=== PATIENT | male | born 1995 | race Caucasian/White ===

== ENCOUNTER 2018-04-02 21:23 | Emergency (ER) | payer OTHER, SELFPAY ==
[2018-04-02 21:24] VITALS: BP 124/78; PULSE 62; RESP 22; TEMP 36.9; O2SAT 100; BMI 33.8
--- NOTE | 2018-04-02 21:27 | ED.RN ---
NO OLD EKGS IN MUSE
--- NOTE | 2018-04-02 21:39 | ED.DCSUM_ITS ---
- ER Visit Summary Date of Service: 04/02/18 Chief Complaint: Chest pain History of Present Illness: The patient is a 22 M presents to the emergency department chest pain. Patient has a history of developmental delay and anxiety. He currently is in a assisted. He began to have some chest tightness today and felt like he was short of breath. He states he began to get more panicked. He began have numbness of his hands and feet and around his mouth. They did do some deep breathing exercises and he was able to relax, but he continued to have the pain. He has no history of coronary vascular disease. He does not smoke. He denies cough. He has no leg swelling. He denies any history of pulmonary embolus. He denies fevers or chills. Physical Examination: Vital signs reviewed General: Well-nourished, well-developed Head: Normocephalic, atraumatic Eyes: Pupils equal and reactive, extraocular muscles intact Neck, supple, no lymphadenopathy Heart: Regular rate and rhythm Respiratory: No distress, clear bilaterally Abdomen: Soft, nontender, nondistended, no peritoneal signs Back: Nontender Extremities: Nontender, no edema, no cords Skin: Normal color no rash Neuro: Alert and oriented, no focal or lateralizing deficits Test Results: [] Emergency Department Course and Treatment: The patient's symptoms do seem entirely anxiety driven. He has no hypoxia. He has no tachypnea. He is PE RC negative. His EKG was obtained showed no acute ischemia or other dangerous process. His chest x-ray is also unremarkable. Patient was given ibuprofen and Ativan and observed. He had total resolution of his symptoms. At this time, I do feel it is safe for outpatient therapy. He will be discharged home. Treatment Plan: [] Disposition: Discharge Impression: 1. Chest pain This note was generated with [employer] dictation software. It may contain incorrect words, spelling, and punctuation that were not noted in review of the chart prior to signing ED Disposition - Plan for ED Patient: Chief Complaint: Chest Pain Instructions: ED Chest Pain Atypical Unkn Cause Referrals: Gregory Nunez PA [Primary Care Provider] -
[2018-04-02] MEDS: Ibuprofen 600 MG Tablet PO (21:41)
[2018-04-02] MEDS: LORazepam 1 MG Tablet PO (21:41)
[2018-04-02 21:43] VITALS: BP 127/67; PULSE 73; RESP 20; O2SAT 96
--- NOTE | 2018-04-02 22:06 | RAD_ITS ---
STUDY: X-RAY CHEST REASON FOR EXAM: Male, 22 years old. Chest pain TECHNIQUE: PA and lateral COMPARISON: None. FINDINGS: There is mild prominence of the interstitial markings in the lower lobes.. There is no demonstrated pleural abnormality. Normal size heart. Normal mediastinum and isidra. Normal visualized pulmonary arteries. Normal visualized aortic arch and descending thoracic aorta. Normal visualized thoracic spine. Normal visualized ribs, clavicles, and shoulders. There is no demonstrated abnormality of the visualized soft tissue structures of the upper abdomen. RAD/Chest PA and Lateral IMPRESSION: Mild interstitial prominence in the lower lobes. Electronically Signed: Ramy Abbott MD at 22:52 EST , Service support ,
--- NOTE | 2018-04-02 22:16 | EKG12_ITS ---
Test Reason : CP Blood Pressure : / mmHG Vent. Rate : 061 BPM Atrial Rate : 061 BPM P-R Int : 172 ms QRS Dur : 090 ms QT Int : 360 ms P-R-T Axes : 028 036 022 degrees QTc Int : 362 ms Normal sinus rhythm Normal ECG Confirmed by LILLIE ENGLISH, DANIE ([id number]), field map editor NAZ MOORE ([id number]) on 04/04/2018 4:29:30 PM Referred By: MOHAN Confirmed By:DANIE MOREIRA MD
[2018-04-02 22:36] VITALS: BP 112/58; PULSE 67; RESP 16; O2SAT 95
--- OUTSIDE RECORDS SUMMARY | 2018-05-15 17:32 | XMS RPT_ITS ---
:1995 Author Organization [place] Care Team Providers Name Role Phone DALILA AGOSTO) Attending Unavailable DALILA AGOSTO) Attending Unavailable Shon Skaggs Attending Unavailable Gregory Nunez Primary Care Unavailable PROBLEMS PROBLEMS No Problem Records FoundPROCEDURES PROCEDURES No Procedure Records FoundRESULTS RESULTS CNOV Observed: 04/09/2018 Status: COMPLETED Source: [place] 1:40 PM [facility] REPOSITORY Office Visit (FAMPWS) MARLO LINDO ([id number]) 1995 M Date Time Provider Department 04/09/18 1:40 PM DALILA AGOSTO) FAMPWS During your visit today, we recorded the following information about you: Pulse Respiration Blood pressure Weight 74/minute 14/minute 124/76 112.5 kg Dalila Agosto APRN.CNP 04/09/2018 2:38 PM Signed HPI/CC: Marlo Lindo is a 22 year old male who presents to the office today for ER follow-up. He was to [facility] following c/o chest pain. Refers that he had an episode of chest pain. Refers that is started when he was in bed getting ready to go to sleep. Described in the upper center and left of the chest. [place] like needles poking out. Hurt to take a deep breath. Unsure if would hurt to cough/sneeze. Made SOB and lightheaded. Had palpitations -- but the chest pain came first. Admits that he was anxious after developing the chest pain. Refers that his limbs were numb and tingling. Refers that he had chest pain in the past, but not this bad. Refers that he doesn't have hx of GERD. Reports needs script for melatonin and nasacort to the pharmacy. Testing completed at the facility: Chest xray, EKG Labwork completed at the facility: N/A Other specialist and follow up care: N/A Pain was relieved after NSAID and ativan. HISTORIES: PAST MEDICAL HISTORY Diagnosis Date - ADHD (attention deficit hyperactivity disorder) - Bipolar 2 disorder (HCC) No past surgical history on file. FAMILY HISTORY Problem Relation Age of Onset - Emphysema Father - Heart Father Social History Marital status: Single Spouse name: Years of education: Number of children: Social History Main Topics Smoking status: Current Every Day Smoker Packs/day: 1.00 Years: 0.00 Smokeless tobacco: Never Used Alcohol use: No Drug use: No Sexual activity: Yes Comment: once Current Outpatient Prescriptions on File Prior to Visit: benzonatate (TESSALON PERLE) 100 mg capsule Take 2 capsules by mouth three times daily as needed. nqxttgbbsuSAVPL-impysm-dlxusefxr (BMX 1:1:1) 1:1:1 liqd Mix in equal amounts - 1 T every 2hrs as needed for mouth pain, Swish/swallow or expectorate. (8oz) COMPOUNDED PRESCRIPTION BP Monitor. Dx: I10 - HTN goal to be determined. Blood Pressure Cuff - Home Use BLOOD PRESSURE CUFF FOR HOME USE. DX: LABILE BLOOD PRESSUREElectronic. Adult/large adult cuff. lurasidone (LATUDA) 40 mg tablet Take by mouth. BENZTROPINE MESYLATE (BENZTROPINE ORAL) Take by mouth. sertraline (ZOLOFT) 50 mg tablet Take 75 mg by mouth once daily. guanFACINE (TENEX) 2 mg tablet Take 2 mg by mouth twice daily. lamoTRIgine (LAMICTAL) 150 mg tablet Take 150 mg by mouth twice daily. cetirizine (ZYRTEC) 10 mg tablet Take 10 mg by mouth once daily. MELATONIN ORAL Take by mouth once daily. hydrOXYzine HCl (ATARAX) 25 mg tablet Take 25 mg by mouth once daily as needed for Anxiety. No current facility-administered medications on file prior to visit. ALLERGIES No Known Allergies PHYSICAL EXAMINATION: BP 124/76 (BP Site: Left Arm, BP Position: Sitting, BP Cuff Size: Large Adult) Pulse 74 Resp 14 Wt 112.5 kg (248 lb) BMI 35.58 kg/m? General appearance: Well appearing, alert, in no acute distress, well-hydrated, well nourished. Skin: Skin color, texture, turgor normal, no suspicious rashes or lesions Head: Normocephalic, no masses, lesions, tenderness or abnormalities Eyes: Anicteric sclera. Extraocular movements are intact. Neck: Supple, no adenopathy; thyroid symmetric, normal size, no bruits Lungs: lungs clear to auscultation. No wheezing, rhonchi, rales Lungs clear to auscultation. No wheezing, rhonchi, rales Heart: RRR without murmur, gallop, or rubs. No ectopy Abdomen: Abdomen soft, non-tender. Bowel sounds normal. No masses, organomegaly Extremities: No deformities, edema, skin discoloration, clubbing or cyanosis. Good capillary refill. Neuro: Gait normal. ASSESSMENT/PLAN: 1. Other chest pain - ICD9: 786.59, ICD10: R07.89 (primary diagnosis) Atypical chest pain, symptoms are not consistent with cardiac ischemia due to nonexertional nature of symptom and localization of the pain possible etiology include musculoskeletal Normal work up in the ER. Pain was relieved with after nsaid and ativan. No further episodes since that time. 2. Chronic insomnia - ICD9: 780.52, ICD10: F51.04 Requests script -- has been taking OTC - MELATONIN 10 MG TABLET 3. Allergic rhinitis, unspecified seasonality, unspecified trigger - ICD9: 477.9, ICD10: J30.9 Needs script. - TRIAMCINOLONE ACETONIDE 55 MCG NASAL SPRAY AEROSOL Discussed treatment plan and patient voices understanding. Patient's questions answered appropriately. Medications and potential side effects were discussed and patient voices understanding. Return to the office as scheduled or as needed for worsening/no improvement. Dalila Agosto APRN.JOHNNIE Agosto APRN.CNP 04/09/2018 1:56 PM Signed 1. Continue the same medications. 2. Let us know if any further episodes of chest pain. 3. Call/return as needed. 4. Recheck with PCP in the next few months. Referring Provider: [facility] [[id number]] Allergies As of Date: 04/09/2018 (No Known Allergies) Date Reviewed: 04/09/2018 Reviewed by: Marietta Campbell Grain Packer - Fully Assessed Reason for Visit: ED Follow-up [821] Cmt: chest pain Primary Visit Diagnosis:Other chest pain [R07.89] Other Visit Diagnoses:Chronic insomnia [F51.04] Allergic rhinitis, unspecified seasonality, unspecified trigger [J30.9] Order(s):melatonin 10 mg tabTake 1 tablet by mouth daily at bedtime.Disp: 30 tabletRfl: 2 triamcinolone acetonide (NASACORT) 55 mcg nasal inhalerUse 2 Sprays in the nose once daily.Disp: 1 InhalerRfl: 2 Prescriptions as of 04/09/2018 Sig: BENZONATATE 100 MG CAPSULE Take 2 capsules by mouth thre* COMPOUNDED PRESCRIPTION BP Monitor. Dx: I10 - HTN g* COMPOUNDED PRESCRIPTION BLOOD PRESSURE CUFF FOR HOME * LURASIDONE 40 MG TABLET Take by mouth. BENZTROPINE ORAL Take by mouth. SERTRALINE 50 MG TABLET Take 75 mg by mouth once jameel* GUANFACINE 2 MG TABLET Take 2 mg by mouth twice jameel* LAMOTRIGINE 150 MG TABLET Take 150 mg by mouth twice da* CETIRIZINE 10 MG TABLET Take 10 mg by mouth once jameel* HYDROXYZINE HCL 25 MG TABLET Take 25 mg by mouth once jameel* MELATONIN 10 MG TABLET Take 1 tablet by mouth daily * TRIAMCINOLONE ACETONIDE 55 MC* Use 2 Sprays in the nose once* Medication notes this encounter MELATONIN ORAL >> Dalila Agosto APRN.CNP 04/09/2018 1:41 PM refill Problem List As Of Date 04/09/2018 Noted Resolved Bipolar 2 disorder (HCC) [F31.81] ADHD (attention deficit hyperactivity disorder)* Other instructions from your clinician: 1. Continue the same medications. 2. Let us know if any further episodes of chest pain. 3. Call/return as needed. 4. Recheck with PCP in the next few months. Prescriptions ordered this encounter Disp Refills Start End MELATONIN 10 MG TABLET 30 t* 2 04/09/2018 Route: ORAL Sig: Take 1 tablet by mouth daily at bedtime. TRIAMCINOLONE ACETONIDE 55 MCG NASAL* 1 In* 2 04/09/2018 Route: NASAL Sig: Use 2 Sprays in the nose once daily. Medications Discontinued During This Encounter MELATONIN ORAL 04/09/2018 Class: Historical Med Route: ORAL Sig: Take by mouth once daily. Disc: Other feepbcbepgZLBXZ-cxvtmj-ftlqdiols (BM* 240 * 0 02/23/2018 04/09/2018 Sig: Mix in equal amounts - 1 T every 2hrs as needed for mouth pain, Swish/swallow or expectorate. (8oz) Disc: Course of therapy completed Encounter Status:Closed by DALILA AGOSTO CNP on 04/09/18 PROGRESS Observed: 04/09/2018 Status: COMPLETED Source: [place] 1:35 PM [facility] RE[facility]IT[facility] ID: [id number] Author: Dalila (Johnnie) Triny Service: (none) Author Type: Nurse Practitioner Type: Progress Notes Filed: 04/09/2018 2:38 PM Note Text: HPI/CC: Marlo Lindo is a 22 year old male who presents to the office today for ER follow-up. He was to [facility] following c/o chest pain. Refers that he had an episode of chest pain. Refers that is started when he was in bed getting ready to go to sleep. Described in the upper center and left of the chest. [place] like needles poking out. Hurt to take a deep breath. Unsure if would hurt to cough/sneeze. Made SOB and lightheaded. Had palpitations -- but the chest pain came first. Admits that he was anxious after developing the chest pain. Refers that his limbs were numb and tingling. Refers that he had chest pain in the past, but not this bad. Refers that he doesn't have hx of GERD. Reports needs script for melatonin and nasacort to the pharmacy. Testing completed at the facility: Chest xray, EKG Labwork completed at the facility: N/A Other specialist and follow up care: N/A Pain was relieved after NSAID and ativan. HISTORIES: PAST MEDICAL HISTORY Diagnosis Date - ADHD (attention deficit hyperactivity disorder) - Bipolar 2 disorder (HCC) No past surgical history on file. FAMILY HISTORY Problem Relation Age of Onset - Emphysema Father - Heart Father Social History Marital status: Single Spouse name: Years of education: Number of children: Social History Main Topics Smoking status: Current Every Day Smoker Packs/day: 1.00 Years: 0.00 Smokeless tobacco: Never Used Alcohol use: No Drug use: No Sexual activity: Yes Comment: once Current Outpatient Prescriptions on File Prior to Visit: benzonatate (TESSALON PERLE) 100 mg capsule Take 2 capsules by mouth three times daily as needed. wfcnpaxmokPNIXK-vqkffu-ngvgpuayv (BMX 1:1:1) 1:1:1 liqd Mix in equal amounts - 1 T every 2hrs as needed for mouth pain, Swish/swallow or expectorate. (8oz) COMPOUNDED PRESCRIPTION BP Monitor. Dx: I10 - HTN goal to be determined. Blood Pressure Cuff - Home Use BLOOD PRESSURE CUFF FOR HOME USE. DX: LABILE BLOOD PRESSUREElectronic. Adult/large adult cuff. lurasidone (LATUDA) 40 mg tablet Take by mouth. BENZTROPINE MESYLATE (BENZTROPINE ORAL) Take by mouth. sertraline (ZOLOFT) 50 mg tablet Take 75 mg by mouth once daily. guanFACINE (TENEX) 2 mg tablet Take 2 mg by mouth twice daily. lamoTRIgine (LAMICTAL) 150 mg tablet Take 150 mg by mouth twice daily. cetirizine (ZYRTEC) 10 mg tablet Take 10 mg by mouth once daily. MELATONIN ORAL Take by mouth once daily. hydrOXYzine HCl (ATARAX) 25 mg tablet Take 25 mg by mouth once daily as needed for Anxiety. No current facility-administered medications on file prior to visit. ALLERGIES No Known Allergies PHYSICAL EXAMINATION: BP 124/76 (BP Site: Left Arm, BP Position: Sitting, BP Cuff Size: Large Adult) Pulse 74 Resp 14 Wt 112.5 kg (248 lb) BMI 35.58 kg/m? General appearance: Well appearing, alert, in no acute distress, well-hydrated, well nourished. Skin: Skin color, texture, turgor normal, no suspicious rashes or lesions Head: Normocephalic, no masses, lesions, tenderness or abnormalities Eyes: Anicteric sclera. Extraocular movements are intact. Neck: Supple, no adenopathy; thyroid symmetric, normal size, no bruits Lungs: lungs clear to auscultation. No wheezing, rhonchi, rales Lungs clear to auscultation. No wheezing, rhonchi, rales Heart: RRR without murmur, gallop, or rubs. No ectopy Abdomen: Abdomen soft, non-tender. Bowel sounds normal. No masses, organomegaly Extremities: No deformities, edema, skin discoloration, clubbing or cyanosis. Good capillary refill. Neuro: Gait normal. ASSESSMENT/PLAN: 1. Other chest pain - ICD9: 786.59, ICD10: R07.89 (primary diagnosis) Atypical chest pain, symptoms are not consistent with cardiac ischemia due to nonexertional nature of symptom and localization of the pain possible etiology include musculoskeletal Normal work up in the ER. Pain was relieved with after nsaid and ativan. No further episodes since that time. 2. Chronic insomnia - ICD9: 780.52, ICD10: F51.04 Requests script -- has been taking OTC - MELATONIN 10 MG TABLET 3. Allergic rhinitis, unspecified seasonality, unspecified trigger - ICD9: 477.9, ICD10: J30.9 Needs script. - TRIAMCINOLONE ACETONIDE 55 MCG NASAL SPRAY AEROSOL Discussed treatment plan and patient voices understanding. Patient's questions answered appropriately. Medications and potential side effects were discussed and patient voices understanding. Return to the office as scheduled or as needed for worsening/no improvement. Dalila Agosto APRN.[facility] 12 LEAD ELECTROCARDIOGRAM Observed: 04/06/2018 Status: F Source: [place] 9:28 AM [facility] Cardiovascular Services [address] [place] [id number] 12 Lead EKG 04/02/180 MR#: [id number] Acct: [id number] Name: MARLO LINDO Rep #: [id number] : 1995 22 From: Enoc Moreira MD Attending Dr: Status: DEP ER Ordering Dr: Shon Skaggs MD Date: 04/02/18 Location: ED Sex: M C Admitted: Test Reason : CP Blood Pressure : / mmHG Vent. Rate : 061 BPM Atrial Rate : 061 BPM P-R Int : 172 ms QRS Dur : 090 ms QT Int : 360 ms P-R-T Axes : 028 036 022 degrees QTc Int : 362 ms Normal sinus rhythm Normal ECG Confirmed by LILLIE ENGLISH, ENOC ([id number]), newspaper managing editor NAZ MOORE ([id number]) on 04/04/2018 4:29:30 PM Referred By: MOHAN Confirmed By:ENOC MOREIRA MD 04/04/18 1629 Date Enoc Moreira MD CC: Gregory Nunez; Shon Skaggs MD Signed EMERGENCY DEPARTMENT Observed: 04/02/2018 Status: F Source: [place] SUMMARY 11:12 PM [facility] [place] Medical Records Department [address] [place] [address] Emergency Department Summary 04/02/18 2138 MR#: [id number] Acct: [id number] Name: MARLO LINDO Rep #: [id number] : 1995 22 From: Shon Skaggs MD PCP: Gregory Nunez Status: REG ER - ER Visit Summary Date of Service: 04/02/18 Chief Complaint: Chest pain History of Present Illness: The patient is a 22 M presents to the emergency department chest pain. Patient has a history of developmental delay and anxiety. He currently is in a alf. He began to have some chest tightness today and felt like he was short of breath. He states he began to get more panicked. He began have numbness of his hands and feet and around his mouth. They did do some deep breathing exercises and he was able to relax, but he continued to have the pain. He has no history of coronary vascular disease. He does not smoke. He denies cough. He has no leg swelling. He denies any history of pulmonary embolus. He denies fevers or chills. Physical Examination: Vital signs reviewed General: Well-nourished, well-developed Head: Normocephalic, atraumatic Eyes: Pupils equal and reactive, extraocular muscles intact Neck, supple, no lymphadenopathy Heart: Regular rate and rhythm Respiratory: No distress, clear bilaterally Abdomen: Soft, nontender, nondistended, no peritoneal signs Back: Nontender Extremities: Nontender, no edema, no cords Skin: Normal color no rash Neuro: Alert and oriented, no focal or lateralizing deficits Test Results: [] Emergency Department Course and Treatment: The patient's symptoms do seem entirely anxiety driven. He has no hypoxia. He has no tachypnea. He is PE RC negative. His EKG was obtained showed no acute ischemia or other dangerous process. His chest x-ray is also unremarkable. Patient was given ibuprofen and Ativan and observed. He had total resolution of his symptoms. At this time, I do feel it is safe for outpatient therapy. He will be discharged home. Treatment Plan: [] Disposition: Discharge Impression: 1. Chest pain This note was generated with [employer] dictation software. It may contain incorrect words, spelling, and punctuation that were not noted in review of the chart prior to signing ED Disposition - Plan for ED Patient: Chief Complaint: Chest Pain Instructions: ED Chest Pain Atypical Unkn Cause Referrals: Gregory Nunez PA [Primary Care Provider] - What to do if you have Problems For any increased pain, shortness of breath, bleeding, nausea or vomiting, chest pain, or any unexpected problems, contact your Primary Care Provider. Call [facility] ([phone]) or report to the closest Emergency Room. Call 911 if necessary. 04/02/18 2312 <Electronically signed by Shon Skaggs MD> Date Shon Skaggs MD Cosigner Signature (If Indicated): Date CC: Gregory Nunez CHEST PA AND LATERAL Observed: 04/02/2018 Status: F Source: [place] 9:33 PM [facility] [place] Imaging Services [address] [place] [address] Chest PA and Lateral MR#: [id number] Acct: [id number] Name: MARLO LINDO Rep #: [id number] : 1995 M 22 From: Ramy Abbott MD PCP: Gregory Nunez Status: REG ER Study: Chest PA and Lateral Date of Exam: 04/02/18 Exam# [id number] Ordering Dr: Shon Skaggs MD STUDY: X-RAY CHEST REASON FOR EXAM: Male, 22 years old. Chest pain TECHNIQUE: PA and lateral COMPARISON: None. FINDINGS: There is mild prominence of the interstitial markings in the lower lobes.. There is no demonstrated pleural abnormality. Normal size heart. Normal mediastinum and isidra. Normal visualized pulmonary arteries. Normal visualized aortic arch and descending thoracic aorta. Normal visualized thoracic spine. Normal visualized ribs, clavicles, and shoulders. There is no demonstrated abnormality of the visualized soft tissue structures of the upper abdomen. RAD/Chest PA and Lateral IMPRESSION: Mild interstitial prominence in the lower lobes. Electronically Signed: Ramy Abbott MD at 22:52 EST , Service support , CC: Gregory Nunez; Shon Skaggs MD Inbound Ingredient Logistics Specialist: Signed PROGRESS Observed: 03/16/2018 Status: COMPLETED Source: [place] 2:55 PM [facility] HAND REPOSITORY [facility] ID: [id number] Author: Althea Vergara LPN Service: (none) Author Type: (none) Type: Progress Notes Filed: 03/16/2018 2:56 PM Note Text: 22 year old male here for INACTIVATED INFLUENZA VACCINE. 8899-8643 Season Patient is identified by name and date of : Yes [] CONTRAINDICATIONS color enhanced section Age less than 6 months? No Allergy to eggs, chicken, chicken feathers, or chicken dander? No Allergy to thimerosal (a preservative) or formaldehyde, gelatin? No History of severe reaction to any vaccine component or a previous dose of influenza vaccination? No History of Guillain-Charleston Syndrome within 6 weeks after a previous influenza vaccine? No Patient is not moderately or severely ill? No Current temperature greater or equal to 100.4F? No History of Bone Marrow Transplant prior 6 months or solid organ transplant in the past 3 months ? No History of fainting after a prior injection or medical procedure? No- ? If patient has fainted in the past, the CDC recommends sitting or lying down for 15 minutes after the vaccination. [] VERIFICATION color enhanced section Was the answer Yes for any of the above contraindications? No contraindications present. Acceptable to proceed with vaccine. Patient/guardian agrees the above answers are true to the best of their knowledge? Yes Flu vaccine information sheet given? Yes See immunization activity in [facility] for details of immunizations adminstered today. Patient age: [age] year old For The 3652-8117 Flu Season 6-35 months old: Fluzone 0.25 ml - IM (Preservative Free) 3 years of age: Fluzone 0.5 ml - IM (Preservative Free) 3 years and older: Fluzone 0.5 ml- IM-(with Preservatives) 65+ years old: 2-49 years old Fluzone High-Dose 0.5 ml - IM (Preservative Free) FLUMIST- intranasal REMEMBER: If patient is less than 9 years of age and this is the first vaccine of Influenza to be received in any flu season, they should receive a second dose in one months time. CNNURSE Observed: 03/16/2018 Status: COMPLETED Source: [place] 2:50 PM [facility] REPOSITORY Nurse Visit (FAMPWS) MARLO LINDO ([id number]) 1995 M Date Time Provider Department 03/16/18 2:50 PM [place] NURSE FAMPWS During your visit today, we recorded the following information about you: Althea Vergara MIGDALIA 03/16/2018 2:56 PM Signed 22 year old male here for INACTIVATED INFLUENZA VACCINE. 2678-1940 Season Patient is identified by name and date of : Yes [] CONTRAINDICATIONS color enhanced section Age less than 6 months? No Allergy to eggs, chicken, chicken feathers, or chicken dander? No Allergy to thimerosal (a preservative) or formaldehyde, gelatin? No History of severe reaction to any vaccine component or a previous dose of influenza vaccination? No History of Guillain-Charleston Syndrome within 6 weeks after a previous influenza vaccine? No Patient is not moderately or severely ill? No Current temperature greater or equal to 100.4F? No History of Bone Marrow Transplant prior 6 months or solid organ transplant in the past 3 months ? No History of fainting after a prior injection or medical procedure? No- ? If patient has fainted in the past, the CDC recommends sitting or lying down for 15 minutes after the vaccination. [] VERIFICATION color enhanced section Was the answer Yes for any of the above contraindications? No contraindications present. Acceptable to proceed with vaccine. Patient/guardian agrees the above answers are true to the best of their knowledge? Yes Flu vaccine information sheet given? Yes See immunization activity in [facility] for details of immunizations adminstered today. Patient age: [age] year old For The 0122-3693 Flu Season 6-35 months old: Fluzone 0.25 ml - IM (Preservative Free) 3 years of age: Fluzone 0.5 ml - IM (Preservative Free) 3 years and older: Fluzone 0.5 ml- IM-(with Preservatives) 65+ years old: 2-49 years old Fluzone High-Dose 0.5 ml - IM (Preservative Free) FLUMIST- intranasal REMEMBER: If patient is less than 9 years of age and this is the first vaccine of Influenza to be received in any flu season, they should receive a second dose in one months time. Referring Provider: SELF [200] Allergies As of Date: 03/16/2018 (No Known Allergies) Date Reviewed: 02/23/2018 Reviewed by: Kaylin Iglesias - Fully Assessed Reason for Visit: Imm/Inj [58] Cmt: Flu Vaccine Primary Visit Diagnosis:Need for vaccination [Z23] Order(s):INFLUENZA VACCINE QUADRIVALENT AGE 3 YRS PLUS + IM [[id number]] Order #: [id number] Prescriptions as of 03/16/2018 Sig: BENZONATATE 100 MG CAPSULE Take 2 capsules by mouth thre* ZAOOXXBDMHZTKVO-XZYVUIZ-QBNKK* Mix in equal amounts - 1 T ev* COMPOUNDED PRESCRIPTION BP Monitor. Dx: I10 - HTN g* COMPOUNDED PRESCRIPTION BLOOD PRESSURE CUFF FOR HOME * LURASIDONE 40 MG TABLET Take by mouth. BENZTROPINE ORAL Take by mouth. SERTRALINE 50 MG TABLET Take 75 mg by mouth once jameel* GUANFACINE 2 MG TABLET Take 2 mg by mouth twice jameel* LAMOTRIGINE 150 MG TABLET Take 150 mg by mouth twice da* CETIRIZINE 10 MG TABLET Take 10 mg by mouth once jameel* MELATONIN ORAL Take by mouth once daily. HYDROXYZINE HCL 25 MG TABLET Take 25 mg by mouth once jameel* Problem List As Of Date 03/16/2018 Noted Resolved Bipolar 2 disorder (HCC) [F31.81] ADHD (attention deficit hyperactivity disorder)* Encounter Status:Closed by ALTHEA VERGARA LPN on 03/16/18 GROUP A STREP BY Collected: 02/23/2018 Status: F Source: [place] PCR 10:37 AM [facility] REPOSITORY TYPE CODE TESTS RESULT OUT OF REFERENCE UNITS RANGE LAB GASSRC Throat Swab GAS Specimen Source LAB PCRGAS Negative for Group A Strep Group A PCR Streptococcus by PCR. Result Comment: This test was developed and its performance characteristics determined by [facility] [place] ([facility]). It has not been cleared or approved by the FDA. [facility] is regulated under CLIA as qualified to perform high-complexity testing. This test is used for clinical purposes. It should not be regarded as inv estigational or for research. Performed By: #### GAS[facility] #### [facility] [id number] [address] [place], [place] [address] PROGRESS Observed: 02/23/2018 Status: COMPLETED Source: [place] 9:45 AM [facility] REPOSITORY HNO ID: [id number] Author: Kaylin Iglesias Service: (none) Author Type: Nurse Practitioner Type: Progress Notes Filed: 02/23/2018 11:00 AM Note Text: Subjective HPI HPI Marlo Lindo is a 22 year old male who presents today for CC of sore throat, cough. This started 1 day ago. Has tried salt water gargle. Symptoms are worsened by nothing. Risk factors none, no sick exposures. Is an every day smoker. .Patient presents with: Sore Throat: with cough x 1 day PAST MEDICAL HISTORY Diagnosis Date - ADHD (attention deficit hyperactivity disorder) - Bipolar 2 disorder (HCC) No past surgical history on file. ALLERGIES Patient has no known allergies. MEDICATIONS COMPOUNDED PRESCRIPTION BP Monitor. Dx: I10 - HTN goal to be determined. Blood Pressure Cuff - Home Use BLOOD PRESSURE CUFF FOR HOME USE. DX: LABILE BLOOD PRESSUREElectronic. Adult/large adult cuff. lurasidone (LATUDA) 40 mg tablet Take by mouth. sertraline (ZOLOFT) 50 mg tablet Take 75 mg by mouth once daily. guanFACINE (TENEX) 2 mg tablet Take 2 mg by mouth twice daily. lamoTRIgine (LAMICTAL) 150 mg tablet Take 150 mg by mouth twice daily. cetirizine (ZYRTEC) 10 mg tablet Take 10 mg by mouth once daily. BENZTROPINE MESYLATE (BENZTROPINE ORAL) Take by mouth. MELATONIN ORAL Take by mouth once daily. hydrOXYzine HCl (ATARAX) 25 mg tablet Take 25 mg by mouth once daily as needed for Anxiety. FAMILY HISTORY Problem Relation Age of Onset - Emphysema Father - Heart Father Social History Substance Use Topics - Smoking status: Current Every Day Smoker Packs/day: 1.00 - Smokeless tobacco: Never Used - Alcohol use No Review of Systems Constitutional: Negative for chills, fever and weight loss. HENT: Positive for congestion and sore throat. Negative for ear pain and nosebleeds. Respiratory: Positive for cough. Negative for shortness of breath and wheezing. Cardiovascular: Negative for chest pain. Musculoskeletal: Negative for neck pain. Skin: Negative for itching and rash. Objective Blood pressure 110/82, pulse 82, temperature 36.5 ?C (97.7 ?F), temperature source Left Tympanic, resp. rate 16, weight 107.4 kg (236 lb 12.8 oz), SpO2 98 %. Physical Exam Constitutional: He is oriented to person, place, and time and well-developed, well-nourished, and in no distress. Non-toxic appearance. He does not have a sickly appearance. No distress. HENT: Head: Normocephalic and atraumatic. Right Ear: Hearing, tympanic membrane, external ear and ear canal normal. Left Ear: Hearing, tympanic membrane, external ear and ear canal normal. Nose: Nose normal. Mouth/Throat: Uvula is midline, oropharynx is clear and moist and mucous membranes are normal. Eyes: Pupils are equal, round, and reactive to light. Conjunctivae and lids are normal. Right eye exhibits no discharge. Left eye exhibits no discharge. No scleral icterus. Neck: Trachea normal and normal range of motion. Neck supple. Cardiovascular: Normal rate, regular rhythm and normal heart sounds. Pulmonary/Chest: Effort normal and breath sounds normal. Loose cough during exam. Lymphadenopathy: He has no cervical adenopathy. Neurological: He is alert and oriented to person, place, and time. Skin: No rash noted. He is not diaphoretic. ASSESSMENT/PLAN: 1. Viral URI with cough - ICD9: 465.9, ICD10: J06.9, B97.89 (primary diagnosis) - Discussed viral etiology and rationale for treatment. - Rapid strep negative in office today - Symptomatic treatment with prn analgesia - Supportive care with fluids and rest - Follow up in 3-5 days if symptoms persist or sooner if worsening of symptoms -discussed smoking cessation -If you experience chest pain/shortness of breath go to ER - BENZONATATE 100 MG CAPSULE - LAOHYWHTZMILFTO-GYSDALL-IZOMSOCJX ([facility]) 2. Sore throat - ICD9: 462, ICD10: J02.9 - suspect viral - Rapid Strep negative in the office today and Throat culture pending - Discussed supportive care treatment with fluids, rest and analgesia. - The patient should follow up in 3-5 days if symptoms persist or worsen - Call back if drooling, increased temperature, symptoms of dehydration and/or still sick in one week - RAPID STREP TEST B/O - GROUP A STREPTOCOCCUS BY PCR Prescription instructions reviewed with patient as applicable. Patient advised if symptoms do not improve or if symptoms worsen sooner, to contact the office for further evaluation by their primary care physician. Potential red flag symptoms discussed with the patient. Reviewed appropriate action plan to take if red flag symptoms occur. Patient agreeable to treatment plan. Kaylin Iglesias APRN.CNP CNOV Observed: 02/23/2018 Status: COMPLETED Source: [place] 9:30 AM [facility] REPOSITORY Office Visit (WSTR) MARLO LINDO ([id number]) 1995 M Date Time Provider Department 02/23/18 9:30 AM KAYLIN IGLESIAS (JOHNNIE) [facility] During your visit today, we recorded the following information about you: Temperature Pulse Respiration Blood pressure 97.7 degrees 82/minute 16/minute 110/82 Weight 107.4 kg Kaylin Iglesias APRN.CNP 02/23/2018 11:00 AM Signed Subjective HPI HPI Marlo Lindo is a 22 year old male who presents today for CC of sore throat, cough. This started 1 day ago. Has tried salt water gargle. Symptoms are worsened by nothing. Risk factors none, no sick exposures. Is an every day smoker. .Patient presents with: Sore Throat: with cough x 1 day PAST MEDICAL HISTORY Diagnosis Date - ADHD (attention deficit hyperactivity disorder) - Bipolar 2 disorder (HCC) No past surgical history on file. ALLERGIES Patient has no known allergies. MEDICATIONS COMPOUNDED PRESCRIPTION BP Monitor. Dx: I10 - HTN goal to be determined. Blood Pressure Cuff - Home Use BLOOD PRESSURE CUFF FOR HOME USE. DX: LABILE BLOOD PRESSUREElectronic. Adult/large adult cuff. lurasidone (LATUDA) 40 mg tablet Take by mouth. sertraline (ZOLOFT) 50 mg tablet Take 75 mg by mouth once daily. guanFACINE (TENEX) 2 mg tablet Take 2 mg by mouth twice daily. lamoTRIgine (LAMICTAL) 150 mg tablet Take 150 mg by mouth twice daily. cetirizine (ZYRTEC) 10 mg tablet Take 10 mg by mouth once daily. BENZTROPINE MESYLATE (BENZTROPINE ORAL) Take by mouth. MELATONIN ORAL Take by mouth once daily. hydrOXYzine HCl (ATARAX) 25 mg tablet Take 25 mg by mouth once daily as needed for Anxiety. FAMILY HISTORY Problem Relation Age of Onset - Emphysema Father - Heart Father Social History Substance Use Topics - Smoking status: Current Every Day Smoker Packs/day: 1.00 - Smokeless tobacco: Never Used - Alcohol use No Review of Systems Constitutional: Negative for chills, fever and weight loss. HENT: Positive for congestion and sore throat. Negative for ear pain and nosebleeds. Respiratory: Positive for cough. Negative for shortness of breath and wheezing. Cardiovascular: Negative for chest pain. Musculoskeletal: Negative for neck pain. Skin: Negative for itching and rash. Objective Blood pressure 110/82, pulse 82, temperature 36.5 ?C (97.7 ?F), temperature source Left Tympanic, resp. rate 16, weight 107.4 kg (236 lb 12.8 oz), SpO2 98 %. Physical Exam Constitutional: He is oriented to person, place, and time and well-developed, well-nourished, and in no distress. Non-toxic appearance. He does not have a sickly appearance. No distress. HENT: Head: Normocephalic and atraumatic. Right Ear: Hearing, tympanic membrane, external ear and ear canal normal. Left Ear: Hearing, tympanic membrane, external ear and ear canal normal. Nose: Nose normal. Mouth/Throat: Uvula is midline, oropharynx is clear and moist and mucous membranes are normal. Eyes: Pupils are equal, round, and reactive to light. Conjunctivae and lids are normal. Right eye exhibits no discharge. Left eye exhibits no discharge. No scleral icterus. Neck: Trachea normal and normal range of motion. Neck supple. Cardiovascular: Normal rate, regular rhythm and normal heart sounds. Pulmonary/Chest: Effort normal and breath sounds normal. Loose cough during exam. Lymphadenopathy: He has no cervical adenopathy. Neurological: He is alert and oriented to person, place, and time. Skin: No rash noted. He is not diaphoretic. ASSESSMENT/PLAN: 1. Viral URI with cough - ICD9: 465.9, ICD10: J06.9, B97.89 (primary diagnosis) - Discussed viral etiology and rationale for treatment. - Rapid strep negative in office today - Symptomatic treatment with prn analgesia - Supportive care with fluids and rest - Follow up in 3-5 days if symptoms persist or sooner if worsening of symptoms -discussed smoking cessation -If you experience chest pain/shortness of breath go to ER - BENZONATATE 100 MG CAPSULE - WZKAUMDDSJQCGNJ-LNXJQOJ-UGEAWJZNY ([facility]) 2. Sore throat - ICD9: 462, ICD10: J02.9 - suspect viral - Rapid Strep negative in the office today and Throat culture pending - Discussed supportive care treatment with fluids, rest and analgesia. - The patient should follow up in 3-5 days if symptoms persist or worsen - Call back if drooling, increased temperature, symptoms of dehydration and/or still sick in one week - RAPID STREP TEST B/O - GROUP A STREPTOCOCCUS BY PCR Prescription instructions reviewed with patient as applicable. Patient advised if symptoms do not improve or if symptoms worsen sooner, to contact the office for further evaluation by their primary care physician. Potential red flag symptoms discussed with the patient. Reviewed appropriate action plan to take if red flag symptoms occur. Patient agreeable to treatment plan. Kaylin Iglesias APRN.JOHNNIE Iglesias APRN.JOHNNIE 02/23/2018 10:16 AM Signed RESPIRATORY INFECTION GENERAL INFORMATION: An upper respiratory tract infection, or cold, is a viral infection of the airway passages. It can be caused by any one of almost 200 different viruses. Common symptoms include a runny or stuffy nose, sneezing, watery eyes, sore throat, cough, and slight fever. Colds are contagious, especially during the first 3 or 4 days and cannot be cured by antibiotics. They are spread by coughs, sneezes, and direct contact, especially nakv-gw-xuxw. A respiratory tract infection usually clears up in a few days, but some people may be sick for a week or two. INSTRUCTIONS: 1. Be careful not to blow your nose too hard because this may cause a nosebleed. 2. Use a cool-mist humidifier (vaporizer) to increase air moisture. This will make it easier for you to breathe. Do not use hot steam. 3. Rest as much as possible and get plenty of sleep. 4. Wash your hands often, especially after you blow your nose. Cover your mouth and nose with a tissue when you sneeze or cough. 5. Drink plenty of clear fluids (8 glasses a day) such as water, fruit juice, tea, clear soups, and carbonated beverages. CONTACT YOUR DOCTOR IF : 1. Your fever lasts more than 3 days. 2. You have a sore throat that gets worse or you see white or yellow spots in your throat. 3. Your cough gets worse or lasts more than 10 days. 4. You develop a rash anywhere on your skin. 5. You have an earache or a headache. 6. You have thick greenish or yellowish discharge from your nose. RETURN IMMEDIATELY IF: 1. You cough up thick yellow, green, orta, or bloody sputum. 2. You have difficulty breathing, pain in your chest, or your skin or nails look orta or blue. 3. You have shaking chills or a temperature over 102 F (39 C). Referring Provider: SELF [200] Allergies As of Date: 02/23/2018 (No Known Allergies) Date Reviewed: 02/23/2018 Reviewed by: Kaylin StuartSolomon Carter Fuller Mental Health CenterDanielle Iglesias - Fully Assessed Reason for Visit: Sore Throat [200] Cmt: with cough x 1 day Reason For Visit History Recorded Primary Visit Diagnosis:Viral URI with cough [J06.9, B97.89] Other Visit Diagnosis:Sore throat [J02.9] Order(s):RAPID STREP TEST B/O [[id number]] Order #: [id number] GROUP A STREPTOCOCCUS BY PCR [SQGASPCR] Order #: [id number] FUTURE benzonatate (TESSALON PERLE) 100 mg capsuleTake 2 capsules by mouth three times daily as needed.Disp: 30 capsuleRfl: 0 sppevnqysdCCPYW-ehryis-ggwlmtgte (BMX 1:1:1) 1:1:1 liqdMix in equal amounts - 1 T every 2hrs as needed for mouth pain, Swish/swallow or expectorate. (8oz)Disp: 240 mLRfl: 0 Prescriptions as of 02/23/2018 Sig: COMPOUNDED PRESCRIPTION BP Monitor. Dx: I10 - HTN g* COMPOUNDED PRESCRIPTION BLOOD PRESSURE CUFF FOR HOME * LURASIDONE 40 MG TABLET Take by mouth. SERTRALINE 50 MG TABLET Take 75 mg by mouth once jameel* GUANFACINE 2 MG TABLET Take 2 mg by mouth twice jameel* LAMOTRIGINE 150 MG TABLET Take 150 mg by mouth twice da* CETIRIZINE 10 MG TABLET Take 10 mg by mouth once jameel* BENZONATATE 100 MG CAPSULE Take 2 capsules by mouth thre* NEWUMBSZSTUOSWX-MZXRJLA-SBTXG* Mix in equal amounts - 1 T ev* BENZTROPINE ORAL Take by mouth. MELATONIN ORAL Take by mouth once daily. HYDROXYZINE HCL 25 MG TABLET Take 25 mg by mouth once jameel* Problem List As Of Date 02/23/2018 Noted Resolved Bipolar 2 disorder (HCC) [F31.81] ADHD (attention deficit hyperactivity disorder)* Other instructions from your clinician: RESPIRATORY INFECTION GENERAL INFORMATION: An upper respiratory tract infection, or cold, is a viral infection of the airway passages. It can be caused by any one of almost 200 different viruses. Common symptoms include a runny or stuffy nose, sneezing, watery eyes, sore throat, cough, and slight fever. Colds are contagious, especially during the first 3 or 4 days and cannot be cured by antibiotics. They are spread by coughs, sneezes, and direct contact, especially chre-la-knzg. A respiratory tract infection usually clears up in a few days, but some people may be sick for a week or two. INSTRUCTIONS: 1. Be careful not to blow your nose too hard because this may cause a nosebleed. 2. Use a cool-mist humidifier (vaporizer) to increase air moisture. This will make it easier for you to breathe. Do not use hot steam. 3. Rest as much as possible and get plenty of sleep. 4. Wash your hands often, especially after you blow your nose. Cover your mouth and nose with a tissue when you sneeze or cough. 5. Drink plenty of clear fluids (8 glasses a day) such as water, fruit juice, tea, clear soups, and carbonated beverages. CONTACT YOUR DOCTOR IF : 1. Your fever lasts more than 3 days. 2. You have a sore throat that gets worse or you see white or yellow spots in your throat. 3. Your cough gets worse or lasts more than 10 days. 4. You develop a rash anywhere on your skin. 5. You have an earache or a headache. 6. You have thick greenish or yellowish discharge from your nose. RETURN IMMEDIATELY IF: 1. You cough up thick yellow, green, orta, or bloody sputum. 2. You have difficulty breathing, pain in your chest, or your skin or nails look orta or blue. 3. You have shaking chills or a temperature over 102 F (39 C). Prescriptions ordered this encounter Disp Refills Start End BENZONATATE 100 MG CAPSULE 30 c* 0 02/23/2018 Route: ORAL Sig: Take 2 capsules by mouth three times daily as needed. BCIZEHZDAAPHYZI-EYLEZOM-NXVSHSRFM (C* 240 * 0 02/23/2018 Sig: Mix in equal amounts - 1 T every 2hrs as needed for mouth pain, Swish/swallow or expectorate. (8oz) Encounter Status:Closed by KAYLIN IGLESIAS CNP on 02/23/18 [place] Observed: 09/18/2017 Status: COMPLETED Source: [place] 2:40 PM [facility] REPOSITORY Office Visit (FAMPWS) MARLO LINDO ([id number]) 1995 M Date Time Provider Department 09/18/17 2:40 PM DALILA AGOSTO (J[place]NNIE) [facility] During your visit today, we recorded the following information about you: Pulse Respiration Blood pressure Weight 68/minute 14/minute 108/72 103.4 kg Dalila Agosto APRN.CNP 09/18/2017 3:02 PM Addendum This is a 22 year old male who presents today with: No chief complaint on file. HISTORY OF PRESENT ILLNESS: Marlo Lindo is a 22 year old male. No chief complaint on file. Pt presents today with complaint of blood pressure issues. Refers that he goes to the counseling center and his blood pressure has been up and down. Refers that he has been sitting for awhile when he gets his blood pressure checked. He does drink a lot of mountain dew. He does smoke. REVIEW OF SYSTEMS GENERAL: No weight loss, malaise or fevers/chills HEENT: Negative for frequent or significant headaches RESPIRATORY: Negative for cough, hemoptysis, wheezing, dyspnea or shortness of breath CARDIOVASCULAR: Negative for chest pain, leg swelling, orthopnea, or palpitations PAST MEDICAL HISTORY: PAST MEDICAL HISTORY Diagnosis Date - ADHD (attention deficit hyperactivity disorder) - Bipolar 2 disorder (HCC) No past surgical history on file. ALLERGIES Patient has no known allergies. MEDICATIONS Current Outpatient Prescriptions: lurasidone (LATUDA) 40 mg tablet Take by mouth. BENZTROPINE MESYLATE (BENZTROPINE ORAL) Take by mouth. sertraline (ZOLOFT) 50 mg tablet Take 75 mg by mouth once daily. guanFACINE (TENEX) 2 mg tablet Take 2 mg by mouth twice daily. lamoTRIgine (LAMICTAL) 150 mg tablet Take 150 mg by mouth twice daily. cetirizine (ZYRTEC) 10 mg tablet Take 10 mg by mouth once daily. MELATONIN ORAL Take by mouth once daily. hydrOXYzine HCl (ATARAX) 25 mg tablet Take 25 mg by mouth once daily as needed for Anxiety. No current facility-administered medications for this visit. FAMILY HISTORY Problem Relation Age of Onset - Emphysema Father - Heart Father Social History Marital status: Single Spouse name: Years of education: Number of children: Social History Main Topics Smoking status: Current Every Day Smoker Packs/day: 1.00 Years: 0.00 Smokeless tobacco: Never Used Alcohol use: No Drug use: No Sexual activity: Yes Comment: once EXAM: BP 128/70 (BP Site: Left Arm, BP Position: Sitting, BP Cuff Size: Large Adult) Pulse 68 Resp 14 Wt 103.4 kg (228 lb) BMI 32.71 kg/m? Recheck -- 108/72 - right arm PHYSICAL EXAM: General Appearance: Well appearing, alert, in no acute distress, well-hydrated, well nourished.. Skin: Skin color, texture, turgor normal, no suspicious rashes or lesions. Head: Normocephalic, no masses, lesions, tenderness or abnormalities. Neck: Supple, no adenopathy; thyroid symmetric, normal size, no bruits. Lungs: Lungs clear to auscultation. No wheezing, rhonchi, rales. Heart: RRR without murmur, gallop, or rubs. No ectopy. Extremities: No deformities, edema, skin discoloration, clubbing or cyanosis. Good capillary refill. . Neurologic: Gait normal. ASSESSMENT/PLAN: 1. Elevated blood pressure reading without diagnosis of hypertension - ICD9: 796.2, ICD10: R03.0 - Encouraged dietary sodium restriction/DASH diet - Recommended regular aerobic exercise. - Recommend home blood pressure monitoring, to bring results in on next visit - smoking cessation - less caffeine - Goal of BP <140/90 - COMPOUNDED PRESCRIPTION Discussed that BPs readings vary. Encouraged that if he is consistently getting elevated readings, then it is time to intervene. Discussed treatment plan and patient voices understanding. Patient's questions answered appropriately. Medications and potential side effects were discussed and patient voices understanding. Return to the office as scheduled or as needed for worsening/no improvement. LEATHA Briggs APRN.CNP 09/18/2017 2:44 PM Signed 1. Check home blood pressures. 2. Bring blood pressure monitor to office for nurse BP check. Dalila Agosto APRN.CNP 10/03/2017 5:11 PM Signed Addended by: DALILA AGOSTO CNP on: 10/03/2017 05:11 PM Modules accepted: Orders Referring Provider: SELF [200] Allergies As of Date: 09/18/2017 (No Known Allergies) Date Reviewed: 09/18/2017 Reviewed by: Marietta Campbell Grain Packer - Fully Assessed Primary Visit Diagnosis:Elevated blood pressure reading without diagnosis of hypertension [R03.0] Other Visit Diagnosis:HTN, goal to be determined [I10] Order(s):Blood Pressure Cuff - Home UseBLOOD PRESSURE CUFF FOR HOME USE. DX: LABILE BLOOD PRESSURE Electronic. Adult/large adult cuff.Disp: 1 KitRfl: 0 COMPOUNDED PRESCRIPTIONBP Monitor. Dx: I10 - HTN goal to be determined.Disp: 1 EachRfl: 0 Prescriptions as of 09/18/2017 Sig: LURASIDONE 40 MG TABLET Take by mouth. BENZTROPINE ORAL Take by mouth. SERTRALINE 50 MG TABLET Take 75 mg by mouth once jameel* GUANFACINE 2 MG TABLET Take 2 mg by mouth twice jameel* LAMOTRIGINE 150 MG TABLET Take 150 mg by mouth twice da* CETIRIZINE 10 MG TABLET Take 10 mg by mouth once jameel* MELATONIN ORAL Take by mouth once daily. HYDROXYZINE HCL 25 MG TABLET Take 25 mg by mouth once jameel* COMPOUNDED PRESCRIPTION BP Monitor. Dx: I10 - HTN g* COMPOUNDED PRESCRIPTION BLOOD PRESSURE CUFF FOR HOME * Problem List As Of Date 09/18/2017 Noted Resolved Bipolar 2 disorder (HCC) [F31.81] ADHD (attention deficit hyperactivity disorder)* Other instructions from your clinician: 1. Check home blood pressures. 2. Bring blood pressure monitor to office for nurse BP check. Prescriptions ordered this encounter Disp Refills Start End COMPOUNDED PRESCRIPTION 1 Kit 0 09/18/2017 Class: Print RX Sig: BLOOD PRESSURE CUFF FOR HOME USE. DX: LABILE BLOOD PRESSURE Electronic. Adult/large adult cuff. COMPOUNDED PRESCRIPTION 1 Ea* 0 10/03/2017 Class: Print RX Sig: BP Monitor. Dx: I10 - HTN goal to be determined. Medications Discontinued During This Encounter risperiDONE (RISPERDAL) 2 mg tablet 09/18/2017 Class: Historical Med Route: ORAL Sig: Take 2 mg by mouth every morning. Disc: Course of therapy completed risperiDONE (RISPERDAL) 4 mg tablet 09/18/2017 Class: Historical Med Route: ORAL Sig: Take 4 mg by mouth every evening. Disc: Course of therapy completed Encounter Status:Closed by DALILA AGOSTO CNP on 09/18/17 PROGRESS Observed: 09/18/2017 Status: COMPLETED Source: [place] 2:29 PM [facility] REPOSITORY O ID: [id number] Author: Dalila Agosto (Bindery Cutter Operator) Service: (none) Author Type: Nurse Practitioner Type: Progress Notes Filed: 09/18/2017 3:02 PM Note Text: This is a 22 year old male who presents today with: No chief complaint on file. HISTORY OF PRESENT ILLNESS: Marlo Lindo is a 22 year old male. No chief complaint on file. Pt presents today with complaint of blood pressure issues. Refers that he goes to the counseling center and his blood pressure has been up and down. Refers that he has been sitting for awhile when he gets his blood pressure checked. He does drink a lot of mountain dew. He does smoke. REVIEW OF SYSTEMS GENERAL: No weight loss, malaise or fevers/chills HEENT: Negative for frequent or significant headaches RESPIRATORY: Negative for cough, hemoptysis, wheezing, dyspnea or shortness of breath CARDIOVASCULAR: Negative for chest pain, leg swelling, orthopnea, or palpitations PAST MEDICAL HISTORY: PAST MEDICAL HISTORY Diagnosis Date - ADHD (attention deficit hyperactivity disorder) - Bipolar 2 disorder (HCC) No past surgical history on file. ALLERGIES Patient has no known allergies. MEDICATIONS Current Outpatient Prescriptions: lurasidone (LATUDA) 40 mg tablet Take by mouth. BENZTROPINE MESYLATE (BENZTROPINE ORAL) Take by mouth. sertraline (ZOLOFT) 50 mg tablet Take 75 mg by mouth once daily. guanFACINE (TENEX) 2 mg tablet Take 2 mg by mouth twice daily. lamoTRIgine (LAMICTAL) 150 mg tablet Take 150 mg by mouth twice daily. cetirizine (ZYRTEC) 10 mg tablet Take 10 mg by mouth once daily. MELATONIN ORAL Take by mouth once daily. hydrOXYzine HCl (ATARAX) 25 mg tablet Take 25 mg by mouth once daily as needed for Anxiety. No current facility-administered medications for this visit. FAMILY HISTORY Problem Relation Age of Onset - Emphysema Father - Heart Father Social History Marital status: Single Spouse name: Years of education: Number of children: Social History Main Topics Smoking status: Current Every Day Smoker Packs/day: 1.00 Years: 0.00 Smokeless tobacco: Never Used Alcohol use: No Drug use: No Sexual activity: Yes Comment: once EXAM: BP 128/70 (BP Site: Left Arm, BP Position: Sitting, BP Cuff Size: Large Adult) Pulse 68 Resp 14 Wt 103.4 kg (228 lb) BMI 32.71 kg/m? Recheck -- 108/72 - right arm PHYSICAL EXAM: General Appearance: Well appearing, alert, in no acute distress, well-hydrated, well nourished.. Skin: Skin color, texture, turgor normal, no suspicious rashes or lesions. Head: Normocephalic, no masses, lesions, tenderness or abnormalities. Neck: Supple, no adenopathy; thyroid symmetric, normal size, no bruits. Lungs: Lungs clear to auscultation. No wheezing, rhonchi, rales. Heart: RRR without murmur, gallop, or rubs. No ectopy. Extremities: No deformities, edema, skin discoloration, clubbing or cyanosis. Good capillary refill. . Neurologic: Gait normal. ASSESSMENT/PLAN: 1. Elevated blood pressure reading without diagnosis of hypertension - ICD9: 796.2, ICD10: R03.0 - Encouraged dietary sodium restriction/DASH diet - Recommended regular aerobic exercise. - Recommend home blood pressure monitoring, to bring results in on next visit - smoking cessation - less caffeine - Goal of BP <140/90 - COMPOUNDED PRESCRIPTION Discussed that BPs readings vary. Encouraged that if he is consistently getting elevated readings, then it is time to intervene. Discussed treatment plan and patient voices understanding. Patient's questions answered appropriately. Medications and potential side effects were discussed and patient voices understanding. Return to the office as scheduled or as needed for worsening/no improvement. Dalila Agosto APRN.PSYCHOLOGIST ENGINEERING PROGRESS Observed: 05/05/2017 Status: COMPLETED Source: [place] 5:37 PM [facility] REPOSITORY O ID: [id number] Author: Rosina Branch Service: (none) Author Type: Nurse Practitioner Type: Progress Notes Filed: 05/05/2017 5:40 PM Note Text: HPI Pt accompanied by caregiver. C/o bilateral eye redness and drainage. Denies fever, chills, eye pain, vision changes, URI sx. Review of Systems Constitutional: Negative for chills and fever. Eyes: Positive for discharge and redness. Negative for blurred vision, double vision, photophobia and pain. Physical Exam Constitutional: He is oriented to person, place, and time and well-developed, well-nourished, and in no distress. No distress. Eyes: EOM and lids are normal. Pupils are equal, round, and reactive to light. Right conjunctiva is injected. Left conjunctiva is injected. Pupils unequal: vision 20/20 jayne card. Neurological: He is alert and oriented to person, place, and time. Skin: Skin is warm and dry. He is not diaphoretic. Pulse 80 Temp 36.7 ?C (98 ?F) (Tympanic) Resp 20 Wt 96.6 kg (213 lb) BMI 30.56 kg/m2 .Patient presents with: Eye Problem: B/L eyes red, itchy and watery x 1 day PAST MEDICAL HISTORY Diagnosis Date - ADHD (attention deficit hyperactivity disorder) - Bipolar 2 disorder (HCC) No past surgical history on file. ALLERGIES Review of patient's allergies indicates no known allergies. MEDICATIONS lurasidone (LATUDA) 40 mg tablet Take by mouth. BENZTROPINE MESYLATE (BENZTROPINE ORAL) Take by mouth. risperiDONE (RISPERDAL) 2 mg tablet Take 2 mg by mouth every morning. sertraline (ZOLOFT) 50 mg tablet Take 75 mg by mouth once daily. guanFACINE (TENEX) 2 mg tablet Take 2 mg by mouth twice daily. lamoTRIgine (LAMICTAL) 150 mg tablet Take 150 mg by mouth twice daily. risperiDONE (RISPERDAL) 4 mg tablet Take 4 mg by mouth every evening. cetirizine (ZYRTEC) 10 mg tablet Take 10 mg by mouth once daily. MELATONIN ORAL Take by mouth once daily. hydrOXYzine HCl (ATARAX) 25 mg tablet Take 25 mg by mouth once daily as needed for Anxiety. trimethoprim-polymyxin eye drops (POLYTRIM) ophthalmic solution Use 1 Drop in both eyes every 6 hours for 7 days. Use in the affected eye. FAMILY HISTORY Problem Relation Age of Onset - Emphysema Father - Heart Father Social History Substance Use Topics - Smoking status: Current Every Day Smoker Packs/day: 1.00 - Smokeless tobacco: Never Used - Alcohol use No ASSESSMENT/PLAN: 1. Bacterial conjunctivitis - ICD9: 372.39, 041.9, ICD10: H10.9 - see medication orders - course and contagiousness issues discussed, including hand washing. - Instructed to call if high fever, development of periorbital redness or swelling, eye pain, visual changes, concerns or if symptoms persist. - POLYMYXIN B SULFATE 10,000 UNIT-TRIMETHOPRIM 1 MG/ML EYE DROPS The patient is instructed to return or seek emergency treatment if symptoms become worse or with any acute change in condition. The patient verbalizes understanding and is in agreement with plan of care. Rosina Branch CNP CNOV Observed: 05/05/2017 Status: COMPLETED Source: [place] 4:30 PM [facility] REPOSIT[facility] Office Visit (WSTR) MARLO LINDO ([id number]) 1995 M Date Time Provider Department 05/05/17 4:30 PM ROSINA BRANCH [facility] During your visit today, we recorded the following information about you: Temperature Pulse Respiration Weight 98 degrees 80/minute 20/minute 96.6 kg Rosina Branch CNP 05/05/2017 5:09 PM Signed Use drops as prescribed. Continue them for at least 2-3 days after the redness and drainage clear. Try to avoid rubbing your eyes. Wash your hands whenever you touch your face or eyes. Do not wear contacts until the redness and drainage has been completely gone for at least 3 days. I would recommend that if you wear eye make-up, you throw away everything you have used recently and buy new. Call or return to the office if your symptoms change, worsen, or fail to improve. Rosina Branch CNP 05/05/2017 5:40 PM Signed HPI Pt accompanied by caregiver. C/o bilateral eye redness and drainage. Denies fever, chills, eye pain, vision changes, URI sx. Review of Systems Constitutional: Negative for chills and fever. Eyes: Positive for discharge and redness. Negative for blurred vision, double vision, photophobia and pain. Physical Exam Constitutional: He is oriented to person, place, and time and well-developed, well-nourished, and in no distress. No distress. Eyes: EOM and lids are normal. Pupils are equal, round, and reactive to light. Right conjunctiva is injected. Left conjunctiva is injected. Pupils unequal: vision 20/20 jayne card. Neurological: He is alert and oriented to person, place, and time. Skin: Skin is warm and dry. He is not diaphoretic. Pulse 80 Temp 36.7 ?C (98 ?F) (Tympanic) Resp 20 Wt 96.6 kg (213 lb) BMI 30.56 kg/m2 .Patient presents with: Eye Problem: B/L eyes red, itchy and watery x 1 day PAST MEDICAL HISTORY Diagnosis Date - ADHD (attention deficit hyperactivity disorder) - Bipolar 2 disorder (HCC) No past surgical history on file. ALLERGIES Review of patient's allergies indicates no known allergies. MEDICATIONS lurasidone (LATUDA) 40 mg tablet Take by mouth. BENZTROPINE MESYLATE (BENZTROPINE ORAL) Take by mouth. risperiDONE (RISPERDAL) 2 mg tablet Take 2 mg by mouth every morning. sertraline (ZOLOFT) 50 mg tablet Take 75 mg by mouth once daily. guanFACINE (TENEX) 2 mg tablet Take 2 mg by mouth twice daily. lamoTRIgine (LAMICTAL) 150 mg tablet Take 150 mg by mouth twice daily. risperiDONE (RISPERDAL) 4 mg tablet Take 4 mg by mouth every evening. cetirizine (ZYRTEC) 10 mg tablet Take 10 mg by mouth once daily. MELATONIN ORAL Take by mouth once daily. hydrOXYzine HCl (ATARAX) 25 mg tablet Take 25 mg by mouth once daily as needed for Anxiety. trimethoprim-polymyxin eye drops (POLYTRIM) ophthalmic solution Use 1 Drop in both eyes every 6 hours for 7 days. Use in the affected eye. FAMILY HISTORY Problem Relation Age of Onset - Emphysema Father - Heart Father Social History Substance Use Topics - Smoking status: Current Every Day Smoker Packs/day: 1.00 - Smokeless tobacco: Never Used - Alcohol use No ASSESSMENT/PLAN: 1. Bacterial conjunctivitis - ICD9: 372.39, 041.9, ICD10: H10.9 - see medication orders - course and contagiousness issues discussed, including hand washing. - Instructed to call if high fever, development of periorbital redness or swelling, eye pain, visual changes, concerns or if symptoms persist. - POLYMYXIN B SULFATE 10,000 UNIT-TRIMETHOPRIM 1 MG/ML EYE DROPS The patient is instructed to return or seek emergency treatment if symptoms become worse or with any acute change in condition. The patient verbalizes understanding and is in agreement with plan of care. Rosina Branch CNP Referring Provider: SELF [[id number]] Allergies As of Date: 05/05/2017 (No Known Allergies) Date Reviewed: 05/05/2017 Reviewed by: Sarah Guido LPN - Fully Assessed Reason for Visit: Eye Problem [43] Cmt: B/L eyes red, itchy and watery x 1 day Primary Visit Diagnosis:Bacterial conjunctivitis [H10.9] Order(s):trimethoprim-polymyxin eye drops (POLYTRIM) ophthalmic solutionUse 1 Drop in both eyes every 6 hours for 7 days. Use in the affected eye.Disp: 1.4 mLRfl: 0 Prescriptions as of 05/05/2017 Sig: LURASIDONE 40 MG TABLET Take by mouth. BENZTROPINE ORAL Take by mouth. RISPERIDONE 2 MG TABLET Take 2 mg by mouth every morn* SERTRALINE 50 MG TABLET Take 75 mg by mouth once jameel* GUANFACINE 2 MG TABLET Take 2 mg by mouth twice jameel* LAMOTRIGINE 150 MG TABLET Take 150 mg by mouth twice da* RISPERIDONE 4 MG TABLET Take 4 mg by mouth every even* CETIRIZINE 10 MG TABLET Take 10 mg by mouth once jameel* MELATONIN ORAL Take by mouth once daily. HYDROXYZINE HCL 25 MG TABLET Take 25 mg by mouth once jameel* POLYMYXIN B SULFATE 10,000 UN* Use 1 Drop in both eyes every* Problem List As Of Date 05/05/2017 Noted Resolved Bipolar 2 disorder (HCC) [F31.81] ADHD (attention deficit hyperactivity disorder)* Other instructions from your clinician: Use drops as prescribed. Continue them for at least 2- 3 days after the redness and drainage clear. Try to avoid rubbing your eyes. Wash your hands whenever you touch your face or eyes. Do not wear contacts until the redness and drainage has been completely gone for at least 3 days. I would recommend that if you wear eye make-up, you throw away everything you have used recently and buy new. Call or return to the office if your symptoms change, worsen, or fail to improve. Prescriptions ordered this encounter Disp Refills Start End POLYMYXIN B SULFATE 10,000 UNIT-TRIM* 1.4 * 0 05/05/2017 05/12/2017 Route: BOTH EYES Sig: Use 1 Drop in both eyes every 6 hours for 7 days. Use in the affected eye. Letter Text [facility] [address] [place], [place] [address] 05/05/2017 TO WHOM IT MAY CONCERN: Patient may use most recent bottle of Polytrim to initiate treatment for conjunctivitis until new rx is picked up at pharmacy. Sincerely yours, [facility]. Encounter Status:Closed by ROSINA BRANCH CNP on 05/05/17 ALLERGIES ALLERGIES DATE TYPE / CODE NAME / CODE REACTION SEVERITY SOURCE 04/02/2018 Drug No Known Unknown [facility] Allergy/416 Allergies/[id number] Hospital 247755(SNOM 0388(RXNORM) Repository ED CT) Drug NO KNOWN [facility] Class/86681 ALLERGIES Main [place] 1003(SNOMED Repository CT) ENCOUNTERS ENCOUNTERS ADMIT/DISCHARGE ACCOUNT ADMITTING ENCOUNTER LOCATION SOURCE NUMBER CLASS 04/09/2018/04/10/20 [id number] Ambulatory [address] [place] Repository 04/02/2018/04/02/20 [id number] Emergency [address] ing:ED Repository 03/16/2018/03/19/20 [id number] Ambulatory [address] [place] Repository 02/23/2018/02/27/20 [id number] Ambulatory [address] [place] Repository 09/18/2017/09/21/19 [id number] Ambulatory [address] [place] Repository 05/05/2017/05/05/20 [id number] Ambulatory [address] [place] Repository PAYERS PAYERS ENCOUNTER GUARANTOR PAYER SUBSCRIBER SOURCE 04/02/2018 MARLO [id number] Primary [facility] [address]Eyi: CHOICEPolicy Number: [id number] [id number] Repository (HP) Date:[id number] [address]DD: 04/02/2018 Secondary NOT GIVENTHU Rodriguez Insurance:SELF PAY [facility] ([place], [place]) Number: Effective Repository Date:2018-04-02
== END 2018-04-02 23:18 | disposition home or self-care (01) ==
LOC: ED 22:03
PROVIDERS: Emergency Provider Emergency Medicine; Family Provider Physician Assistant; PCP Physician Assistant
DX: R07.89 Other chest pain (principal); R06.00 Dyspnea, unspecified; R00.2 Palpitations; R20.0 Anesthesia of skin; R62.50 Unspecified lack of expected normal physiological development in childhood; F41.9 Anxiety disorder, unspecified; Z79.899 Other long term (current) drug therapy
CPT/HCPCS: 71046; 93005; 99284

== ENCOUNTER 2020-06-11 08:44 | Emergency (ER) | payer MEDICAID, SELFPAY ==
[2020-04-19 09:44] VITALS: BMI 35.2
[2020-06-11 08:46] VITALS: BP 162/78; PULSE 78; RESP 16; TEMP 36.4; O2SAT 95; BMI 36.9
--- NOTE | 2020-06-11 08:56 | EKG12_ITS ---
Test Reason : Blood Pressure : / mmHG Vent. Rate : 065 BPM Atrial Rate : 065 BPM P-R Int : 178 ms QRS Dur : 086 ms QT Int : 348 ms P-R-T Axes : 020 038 016 degrees QTc Int : 361 ms Normal sinus rhythm with sinus arrhythmia Nonspecific ST abnormality Abnormal ECG Confirmed by LILLIE ENGLISH, DANIE ([id number]), slot editor JEFFERY KING ([id number]) on 06/12/2020 11:14:58 AM Referred By: JULIO Confirmed By:DANIE MOREIRA MD
--- NOTE | 2020-06-11 08:59 | ED.VIS.GEN ---
History of Present Illness Chief Complaint: Hypertension Narrative: Chief complaints as palpitations. When I talked to the patient he tells me that he did not have a fast heart rate he just felt his heart beating hard. This has now stopped. He checked his blood pressure at home and it was quite elevated thus he came to the emergency department. He denies any kind of chest pain or shortness of breath he has no back pain he has no pleuritic component he has no fever or chills he has no headache or vision changes no other neurological symptoms he has no ataxia or any neck pain. No history of trauma. He is now completely asymptomatic. He did take his morning dose of lisinopril. Past medical history: Hypertension Medications: Lisinopril Social history: Noncontributory Review of systems: All systems negative except as indicated General: Denies: Fever Eyes: Denies: Visual changes - bilaterally ENT: Denies: Rhinorrhea, Sore throat Cardiovascular: Denies: Chest pain, no actual palpitations but he did feel his heart beating Respiratory: Denies: Dyspnea, Cough Gastrointestinal: Denies: Abdominal pain, Nausea, Vomiting Genitourinary: Denies: Dysuria Musculoskeletal: Denies: Myalgias Skin: Denies: Rash Neurological: Denies: Headache, no focal weakness Psych: Reports: negative Hematologic: Denies: Easy bruising, Easy bleeding Physical exam General: Well nourished, Well developed, No Acute Distress Head: Normocephalic, Atraumatic Eyes: Conjunctiva not pale ENT: Moist mucous membranes Neck: Supple, Nontender, No lymphadenopathy Cardiovascular: Regular rate, Regular rhythm Respiratory: No distress, CTA bilaterally Abdomen: Soft, Nontender, Nondistended Back: Nontender, Normal Inspection. Negative for: CVA tenderness Extremities: Nontender, No edema Skin: Normal color, No rash Neurological: Alert, Normal Strength, Normal Sensation Psychological: Normal affect Past Medical History - Allergies and Home Meds Allergies/Adverse Reactions: Allergies grass pollen Allergy (Verified 04/19/20 09:46) unknown house dust Allergy (Verified 04/19/20 09:46) unknown Primary Care Physician: Joelle Kelly NP, ENGAGEMENT SPECIALIST-C [Primary Care Provider] - Smoking Status: Current every day smoker Physical Exam Vital Signs/Narrative: Vital Signs Temp Pulse Resp BP Pulse Ox 06/11/20 08:46 97.6 F L 78 16 162/78 H 95 Diagnostic/Tx/Re-eval - Rhythm Strip Rhythm Strip: Sinus Rhythm Rate: 65 Ectopy: None - EKG Initial EKG Interpretation: - - This rhythm with a rate of 65. Normal [place] and QTc intervals. No ischemic changes. Interpreted by emergency doctor - Medical Decision Making Patient's blood pressure significantly improved. He appears well. I will discharge him in stable condition. He is to take his home medications keep a log of his blood pressures so he can discuss this with his primary care physician. ED Disposition - Plan for ED Patient: Disposition: Home or Assisted Living Instructions: ED Hypertension, Established Referrals: Joelle Kelly ENGAGEMENT SPECIALIST, ENGAGEMENT SPECIALIST-C [Primary Care Provider] - 2 Days
[2020-06-11 09:50] LABS: ALB/GLOB Ratio 1.1 RATIO (0.9-2.4); AST(SGOT) 29 U/L (15-37); Alanine Aminotransfer ALT/SGPT 69 U/L (16-61); Albumin, Serum 3.8 g/dL (3.2-5.0); Alkaline Phosphatase 80 U/L (45-117); Anion Gap 5 (5-15); BUN 11 mg/dL (7-18); BUN/Creat Ratio 12.5 RATIO (10-20); Chloride 108 mmol/L (98-107); Creatinine, Serum 0.88 mg/dL (0.70-1.30); EST Glomerular Filtration Rate 115 mL/min (>60); Est Glom Filt Rate - Afr Amer 139 mL/min (>60); Estimated Creatinine Clearance 140.24 ml/min; Globulin 3.5 g/dL (2.2-4.2); Glucose 102 mg/dL (74-106); Protein, Total 7.3 g/dL (6.4-8.2); Sodium Level 139 mmol/L (136-145)
[2020-06-11 10:47] VITALS: BP 139/82
== END 2020-06-11 10:47 | disposition home or self-care (01) ==
PROVIDERS: Emergency Provider Emergency Medicine; PCP Nurse Practitioner Primary Care
DX: I10 Essential (primary) hypertension (principal); Z79.899 Other long term (current) drug therapy; F17.200 Nicotine dependence, unspecified, uncomplicated
CPT/HCPCS: 80053; 93005; 99284

== ENCOUNTER 2021-02-08 05:15 | Emergency (ER) | payer MEDICAID, SELFPAY ==
[2021-02-08 05:16] VITALS: BP 173/91; PULSE 78; RESP 19; TEMP 36.6; O2SAT 99; BMI 35.9
--- NOTE | 2021-02-08 05:25 | RAD_ITS ---
STUDY: X-RAY CHEST REASON FOR EXAM: Male, 25 years old patient with chest pain. TECHNIQUE: Single AP portable view of the chest. COMPARISON: 04/02/2018. FINDINGS: Cardiac monitoring leads are present. The lungs are expanded. There are prominent bronchovascular markings in both lungs. There is interstitial thickening present in both lungs. There is no demonstrated pleural abnormality. Normal size heart. Normal mediastinum and isidra. There is prominence of the pulmonary hilar arteries without peripheral pulmonary vascular congestion. Normal visualized aortic arch and descending thoracic aorta. Normal visualized thoracic spine. Normal visualized ribs, clavicles, and shoulders. There is no demonstrated abnormality of the visualized soft tissue structures of the upper abdomen. RAD/Chest 1 View (Portable) IMPRESSION: Radiographic findings suggest sequela of acute exacerbation of reactive airway disease and/or viral infection. Electronically Signed: Mariya Montoya MD at 6:03 EDT , Service support ,
--- NOTE | 2021-02-08 05:25 | EKG12_ITS ---
Test Reason : CP Blood Pressure : / mmHG Vent. Rate : 070 BPM Atrial Rate : 070 BPM P-R Int : 170 ms QRS Dur : 088 ms QT Int : 340 ms P-R-T Axes : 023 025 018 degrees QTc Int : 367 ms Normal sinus rhythm with sinus arrhythmia Normal ECG When compared with ECG of 11-JUN-2020 09:05, No significant change was found Confirmed by AFSANEH ENGLISH, CHERY ([id number]), publishing editor LOUIS AGUILERA ([id number]) on 02/16/2021 10:15:24 AM Referred By: COOKIE Confirmed By:CHERY SHELBY MD
--- NOTE | 2021-02-08 05:41 | EDS_ITS ---
HPI History of Present Illness Chief Complaint: Chest Pain Detail of Chief Complaint: Elevated blood pressure Informant: patient Onset/Context/Timing Onset: Today and Hours Activity at onset: gradual Timing: Intermittent Current Severity: Gone Maximum Severity: Mild Worsened By: Nothing Relieved By: Nothing Narrative Narrative: 5-year-old male treated for hypertension with lisinopril. States his blood pressures running high tonight at home. Like 170s over 90s. He said he got concerned. [place] like he might be developing chest discomfort and came into the emergency department. He has no cardiac history. He is never had a DVT or PE. He has had no recent travel surgery or immobilization. Currently symptom- free. His blood pressure when I am in the room is 142/82. Prior Similar Symptoms: Yes Recent Illness/Hospitalization: No CVD Risk Factors: Positive for Hypertension and Smoking; Negative for Diabetes, Hypercholesterolemia and Family History 1' </=55 PE Risk Factors: Negative for Recent Travel/Surgery, Recent Immobilization, Prior DVT or PE, Cancer and OCP + Smoking + >/=35 TAD Risk Factors: Positive for Hypertension; Negative for Marfan's Syndrome [facility] Medical History Chronic neck and back pain Fatigue HTN (hypertension) Pilonidal cyst with abscess Sleep apnea SOB (shortness of breath) Tourette disorder Home Medications cetirizine 10 mg PO DAILY 04/02/18 [History Last Taken Unknown] melatonin 3 mg PO QHS 04/02/18 [History Last Taken Unknown] sertraline 75 mg PO DAILY 04/02/18 [History Last Taken Unknown] carbamazepine (mood stabiliz) 300 mg capsule,extend release 12 hr(mood stabilizing) 300 mg PO cap 04/10/20 [History Last Taken Unknown] cariprazine 6 mg capsule 6 mg PO cap 04/10/20 [History Last Taken Unknown] cholecalciferol (vitamin D3) 1,250 mcg (50,000 unit) capsule cap PO 04/10/20 [History Last Taken Unknown] guanfacine 4 mg tablet,extended release 24 hr 4 mg PO tab 04/10/20 [History Last Taken Unknown] lamotrigine 100 mg tablet 100 mg PO tab 04/10/20 [History Last Taken Unknown] lisinopril 5 mg tablet tab PO 04/10/20 [History Last Taken Unknown] lurasidone 120 mg tablet 120 mg PO tab 04/10/20 [History Last Taken Unknown] ubzvmxtv-yek-klbgq 200 mcg-lycop 175 mcg-lutei 250 mcg-herb 178 tablet tab PO 04/10/20 [History Last Taken Unknown] propranolol 10 mg tablet tab PO 04/10/20 [History Last Taken Unknown] Allergy/AdvReac Type Severity Reaction Status Date / Time grass pollen Allergy unknown Verified 04/19/20 09:46 house dust Allergy unknown Verified 04/19/20 09:46 Family History Other Heart disease Liver disease Tourette syndrome Social History Smoking Status: Current every day smoker tobacco type: cigarettes alcohol intake: current Alcohol type: beer ROS ROS ED ROS Narrative Denies recent illness. Review of Systems ROS Unobtainable: Denies due to encephalopathy Constitutional Constitutional ED: Denies chills or fever(s) Eyes Eyes: Reports none ENT ENT ED: Denies ear pain or sore throat Cardiovascular Cardiovascular: Reports as per HPI and chest pain; Denies palpitations or racing heartbeat Respiratory/Chest Respiratory/Chest: Denies cough or dyspnea Gastrointestinal Gastrointestinal: Denies abdominal pain, diarrhea, nausea or vomiting Genitourinary Genitourinary ED: Denies dysuria Musculoskeletal Musculoskeletal: Denies myalgias Integumentary Denies rash Neurologic Neurologic: Denies headache(s) Psychiatric Psychiatric: Denies depression Endocrine Endocrinology: Denies polyuria Hematologic/Lymphatic Hematologic/Lymphatic: Denies easy bruising Allergic/Immunologic Allergic/Immunologic ED: Denies urticaria EXAM Physical Exam Narrative Exam Narrative: 7-year-old male no acute distress vital signs stable afebrile. Initial blood pressure was 173/91 however while I am examining him in the room the blood pressure 142/82. Exam normal. Chest wall nontender. Lungs clear to auscultation bilaterally. Heart regular rate and rhythm. Abdomen soft nontender. Moving all 4 extremities. Radial pulses equal symmetrical. Calves are nontender without edema or cords. Const Vital Signs: 02/08/21 05:16 02/08/21 05:19 Temperature 97.9 F Temperature Source Temporal Pulse Rate 78 Respiratory Rate 19 H Respiratory Effort Normal Blood Pressure 173/91 H Blood Pressure Mean 118 Pulse Ox 99 Oxygen Delivery Method Room Air Positive well nourished, well developed and obese; Negative for cachectic, contractures or unkempt General Appearance ED: well developed and NAD; Negative for unkempt, cachectic, contractures or pallor Nutritional Appearance: obese; Negative for cachectic HEENT Reports moist mucous membranes normocephalic and atraumatic; Negative for trauma or tenderness Eyes PERRL and EOMs intact bilaterally Neck no lymphadenopathy, supple and no JVD General: Negative for tenderness Chest Wall inspection of chest normal and palpation of chest normal Resp normal respiratory effort and clear to auscultation bilaterally Effort and Inspection: respiratory distress Auscultation: Negative for rales, rhonchi or wheezes Cardio regular rate, regular rhythm, S1 normal heart sound, S2 normal heart sound and no murmurs Rate: Negative for bradycardia or tachycardic GI normal to inspection, nondistended, normoactive bowel sounds, soft to palpation, non-tender, non-distended and no masses; Negative for hepatosplenomegaly Auscultation: Negative for hyperactive bowel sounds Palpation: Negative for splenomegaly or mass Back/Spine no CVA tenderness Extremity normal to inspection General Extremety ED: Negative for edema or tenderness General Extremity: Negative for edema Neuro oriented x3 Sensorium / Orientation: awake, alert, oriented to person, oriented to place and oriented to time Motor Exam: strength 5/5 throughout Psych mental status grossly normal Appearance: Negative for unkempt Attitude: No agitated Mood & Affect: Negative for depressed, anxious or tearful Skin no rashes or lesions noted and no wounds General Skin Exam: Negative for jaundice or pallor MDM MDM MDM Narrative Medical decision making narrative: Young male with acute on chronic hypertension is since resolved. No signs of hypertensive emergency or urgency. EKG and chest x-ray being obtained. Radiography Chest X-Ray - ED: 1 View, Read by ED Physician, Normal, Heart, Lungs, Mediastinum, Bony Structures and No Acute Disease Diagnostic Testing: Single view portable chest x-ray interpreted by myself shows no acute abnormality. Normal cardiac silhouette and mediastinum. Rhythm Strip Rhythm Strip: Sinus Rhythm Rate: 70 Ectopy: None EKG Initial EKG: Attestation: I personally reviewed and interpreted this EKG as follows: Interpretation: Sinus Rhythm and No Acute Injury Pattern Comments: Normal sinus rhythm rate of 70 no acute signs of [place] or ischemia. Prior EKG tracings: not available for review Discharge Plan Triage Chief Complaint: Chest Pain ED Provider: Lawrence Cassidy Dx/Rx/DC Orders Clinical Impression: Hypertension, Chest pain of uncertain etiology Instructions: Controlling High Blood Pressure, ED Chest Pain, Noncardiac Prescriptions: No Action lisinopril 5 mg tablet PO RF: 0 cholecalciferol (vitamin D3) 1,250 mcg (50,000 unit) capsule PO RF: 0 [id number] 200-175-250 mcg tablet PO RF: 0 guanfacine 4 mg tablet extended release 24 hr 4 mg PO RF: 0 cariprazine 6 mg capsule 6 mg PO RF: 0 lurasidone 120 mg tablet 120 mg PO RF: 0 carbamazepine (mood stabiliz) 300 mg capsule,extend release 12 hr(mood stabilizing) 300 mg capsule, ER multiphase 12 hr 300 mg PO RF: 0 propranolol 10 mg tablet PO RF: 0 lamotrigine 100 mg tablet 100 mg PO RF: 0 cetirizine 10 MG tablet 10 mg PO DAILY RF: 0 melatonin 3 MG tablet 3 mg PO QHS RF: 0 sertraline 50 MG tablet 75 mg PO DAILY RF: 0 Primary Care Provider: Joelle Kelly NP Referrals: Joelle Kelly NP, [facility] [Primary Care Provider] - 1 Week if not improving Activity Restrictions/Additional Instructions: Call follow-up with your primary care provider. Log your blood pressures twice daily and show them to your primary care provider so they can decide if they need to do anything with adjusting her medications or not. Take your medications as prescribed. Your chest x-ray and EKG today along with your physical exam are all normal. Disposition Disposition: Home, Self Care
[2021-02-08 05:57] VITALS: BP 130/87; PULSE 82; RESP 19; O2SAT 98
== END 2021-02-08 05:57 | disposition home or self-care (01) ==
LOC: ED 05:53
PROVIDERS: Emergency Provider Emergency Medicine; PCP Nurse Practitioner Primary Care
DX: R07.89 Other chest pain (principal); I10 Essential (primary) hypertension; G47.30 Sleep apnea, unspecified; F95.2 Tourette's disorder; G89.29 Other chronic pain; Z79.899 Other long term (current) drug therapy; F17.210 Nicotine dependence, cigarettes, uncomplicated
CPT/HCPCS: 71045; 93005; 99283; A4216

== ENCOUNTER 2021-07-29 22:44 | Emergency (ER) | payer MEDICAID, SELFPAY ==
[2021-07-29 22:45] VITALS: BP 146/91; PULSE 92; RESP 14; TEMP 35.5; O2SAT 98; BMI 34.4
--- NOTE | 2021-07-29 22:55 | EDS_ITS ---
HPI History of Present Illness Chief Complaint: Ear Problem Narrative Narrative: Patient presents with cerumen impaction. He states that he was trying to clean out his ears, using a cotton tip swab, and accidentally pushed the earwax in his right ear further down. He denies any fevers or chills. No pain, but states that he is having problems with slightly muffled hearing. He denies any discharge. He states this is never happened to him previously and that he was able to remove any wax from his left ear. [facility] Medical History Chronic neck and back pain Fatigue HTN (hypertension) Pilonidal cyst with abscess Sleep apnea SOB (shortness of breath) Tourette disorder Home Medications cetirizine 10 mg PO DAILY 04/02/18 [History Last Taken Unknown] melatonin 3 mg PO QHS 04/02/18 [History Last Taken Unknown] sertraline 75 mg PO DAILY 04/02/18 [History Last Taken Unknown] carbamazepine (mood stabiliz) 300 mg capsule,extend release 12 hr(mood stabilizing) 300 mg PO cap 04/10/20 [History Last Taken Unknown] cariprazine 6 mg capsule 6 mg PO cap 04/10/20 [History Last Taken Unknown] cholecalciferol (vitamin D3) 1,250 mcg (50,000 unit) capsule cap PO 04/10/20 [History Last Taken Unknown] guanfacine 4 mg tablet,extended release 24 hr 4 mg PO tab 04/10/20 [History Last Taken Unknown] lamotrigine 100 mg tablet 100 mg PO tab 04/10/20 [History Last Taken Unknown] lisinopril 5 mg tablet tab PO 04/10/20 [History Last Taken Unknown] lurasidone 120 mg tablet 120 mg PO tab 04/10/20 [History Last Taken Unknown] igopsskt-jal-ykxew 200 mcg-lycop 175 mcg-lutei 250 mcg-herb 178 tablet tab PO 04/10/20 [History Last Taken Unknown] propranolol 10 mg tablet tab PO 04/10/20 [History Last Taken Unknown] Allergy/AdvReac Type Severity Reaction Status Date / Time grass pollen Allergy unknown Verified 07/29/21 22:45 house dust Allergy unknown Verified 07/29/21 22:45 Family History Other Heart disease Liver disease Tourette syndrome Social History Smoking Status: Unknown if ever smoked alcohol intake: current Alcohol type: beer ROS ROS ED ROS Narrative Constitutional: No fever, no chills. HEENT: No sore throat. No neck pain. No loss of vision. No rhinorrhea. Cerumen impaction right ear with slightly muffled hearing. Cardiovascular: No chest pain. No palpitations. No pedal edema. Respiratory: No cough, no shortness of breath. Abdominal: No abdominal pain. No nausea. No vomiting. Genitourinary: No dysuria. No hematuria. Musculoskeletal: No myalgias. No arthralgias. Neurologic: No headaches. No dizziness. No lightheadedness. Skin: No rash. No change in color. Psychiatric: No depression. No anxiety. EXAM Physical Exam Narrative Exam Narrative: Afebrile. Vital signs noted. HEENT: Normocephalic. Atraumatic. PERRL, EOMI. Neck soft and supple. No point tenderness or step off. TM on left visualized. TM on right obscured by cerumen impaction. No bleeding or erythema. No mastoid tenderness. No pain with movement of auricle. Cardiovascular: Regular rate and rhythm. No murmurs, rubs, or gallops appreciated. Respiratory: No tachypnea. Lungs clear to auscultation bilaterally. Gastrointestinal: Abdomen soft, nontender, with normoactive bowel sounds. No rebound or guarding. Neurological: Awake. Alert. Nonfocal, nonlateralizing. Skin: No rash. Normal color. No pallor. Musculoskeletal: No pedal edema. Full range of motion extremities. Const Vital Signs: 07/29/21 22:45 Temperature 95.9 F L Temperature Source Temporal Pulse Rate 92 Respiratory Rate 14 Blood Pressure 146/91 H Blood Pressure Mean 109 Pulse Ox 98 Oxygen Delivery Method Room Air MDM MDM MDM Narrative Medical decision making narrative: Debrox will be instilled in his right ear and RN will irrigate afterwards to remove cerumen impaction. He was told not to use cotton tip swabs, and to use Debrox and irrigate his ears in the future. Patient will be discharged home in stable condition after earwax/cerumen impacti on removal. He is in stable condition. Discharge Plan Triage Chief Complaint: Ear Problem ED Provider: Shamir Arevalo Dx/Rx/DC Orders Clinical Impression: Cerumen impaction Instructions: ED Cerumen Impaction Treated Prescriptions: No Action lisinopril 5 mg tablet PO RF: 0 cholecalciferol (vitamin D3) 1,250 mcg (50,000 unit) capsule PO RF: 0 [id number] 200-175-250 mcg tablet PO RF: 0 guanfacine 4 mg tablet extended release 24 hr 4 mg PO RF: 0 cariprazine 6 mg capsule 6 mg PO RF: 0 lurasidone 120 mg tablet 120 mg PO RF: 0 carbamazepine (mood stabiliz) 300 mg capsule,extend release 12 hr(mood stabilizing) 300 mg capsule, ER multiphase 12 hr 300 mg PO RF: 0 propranolol 10 mg tablet PO RF: 0 lamotrigine 100 mg tablet 100 mg PO RF: 0 cetirizine 10 MG tablet 10 mg PO DAILY RF: 0 melatonin 3 MG tablet 3 mg PO QHS RF: 0 sertraline 50 MG tablet 75 mg PO DAILY RF: 0 Primary Care Provider: Joelle Kelly NP Referrals: Joelle Kelly NP, [facility] [Primary Care Provider] - 3-5 Days Disposition Disposition: Home, Self Care
[2021-07-29] MEDS: Carbamide Peroxide 15 ML Bottle 5 DRP OTIC (23:06)
[2021-07-30 00:09] VITALS: RESP 18
== END 2021-07-30 00:09 | disposition home or self-care (01) ==
PROVIDERS: Emergency Provider Emergency Medicine; PCP Nurse Practitioner Primary Care; Visit Provider Emergency Medicine
DX: H61.21 Impacted cerumen, right ear (principal); I10 Essential (primary) hypertension; G89.29 Other chronic pain; G47.30 Sleep apnea, unspecified; F95.2 Tourette's disorder; Z79.899 Other long term (current) drug therapy
CPT/HCPCS: 99283

== ENCOUNTER 2023-10-03 20:34 | Emergency (ER) | payer MEDICAID, SELFPAY ==
[2023-10-03 20:34] VITALS: BP 123/83; PULSE 62; RESP 16; TEMP 36.6; O2SAT 98; BMI 27.5
--- NOTE | 2023-10-04 00:23 | EDS_ITS ---
HPI History of Present Illness Chief Complaint: Ear Problem Informant: patient Onset/Context/Timing Onset: Today Context: Sudden Onset Timing: Continuous Quality: Like my ear is underwater Location: Right ear Worsened by: Nothing Relieved by: Nothing Narrative Narrative: Patient presents with right ear pain that began tonight. Patient states he was using a Q-tip and pushed wax into his ear canal. Patient states he is having difficulty hearing out of his right ear. Patient states this has been constant for several hours. Patient states nothing makes it better and nothing makes it worse. Patient denies any fevers or chills. Patient denies any sore throat or rhinorrhea. Patient denies any chest pain or shortness of breath. [facility] Medical History Tourette disorder Sleep apnea Pilonidal cyst with abscess Chronic neck and back pain Fatigue SOB (shortness of breath) HTN (hypertension) Home Medications ?Medication ?Instructions ?Recorded ?Last Taken ?Type cetirizine 10 mg tablet 10 mg PO DAILY 04/02/18 Unknown History melatonin 3 mg tablet 3 mg PO QHS 04/02/18 Unknown History sertraline 50 mg tablet 75 mg PO DAILY 04/02/18 Unknown History carbamazepine (mood stabiliz) 300 300 mg PO 04/10/20 Unknown History mg capsule,extend release 12 hr(mood stabilizing) cariprazine 6 mg capsule 6 mg PO 04/10/20 Unknown History cholecalciferol (vitamin D3) 1,250 cap PO 04/10/20 Unknown History mcg (50,000 unit) capsule guanfacine 4 mg tablet,extended 4 mg PO 04/10/20 Unknown History release 24 hr lamotrigine 100 mg tablet 100 mg PO 04/10/20 Unknown History lisinopril 5 mg tablet tab PO 04/10/20 Unknown History lurasidone 120 mg tablet 120 mg PO 04/10/20 Unknown History [id number]-cvl-[id number] 200 mcg-lycop tab PO 04/10/20 Unknown History 175 mcg-lutei 250 mcg-herb 178 tablet propranolol 10 mg tablet tab PO 04/10/20 Unknown History Allergy/AdvReac Type Severity Reaction Status Date / Time grass pollen Allergy unknown Verified 10/03/23 20:36 house dust Allergy unknown Verified 10/03/23 20:36 Family History Other Heart disease Liver disease Tourette syndrome no surgical history Social History (Updated 10/04/23 @ 00:[address] Tho Romero, DO) Smoking Status: Current every day smoker tobacco type: cigarettes alcohol intake: current Alcohol type: beer ROS ROS ED Constitutional Constitutional ED: Denies chills or fever(s) Eyes Eyes: Denies blurry vision or change in vision ENT ENT ED: Reports ear pain right; Denies rhinorrhea or sore throat Cardiovascular Cardiovascular: Denies chest pain or palpitations Respiratory/Chest Respiratory/Chest: Denies cough or dyspnea Gastrointestinal Gastrointestinal: Denies nausea or vomiting Genitourinary Genitourinary ED: Denies dysuria or hematuria Musculoskeletal Musculoskeletal: Denies back pain or neck pain Integumentary Denies abscess or rash Neurologic Neurologic: Denies headache(s) or weakness Allergic/Immunologic Allergic/Immunologic ED: Denies mouth swelling or urticaria EXAM Physical Exam Const Vital Signs: 10/03/23 20:34 Temperature 97.8 F Temperature Source Temporal Pulse Rate 62 Respiratory Rate 16 Blood Pressure 123/83 H Blood Pressure Mean 96 Pulse Ox 98 Oxygen Delivery Method Room Air Positive well nourished and well developed General Appearance ED: well developed and NAD HEENT Reports moist mucous membranes HEENT Narrative: The right external auditory canal is occluded by cerumen. The left external auditory canal has a minimal amount of cerumen. The left tympanic membrane is clear. Neck supple and no JVD Neuro oriented x3, CN's II-XII intact bilaterally and no sensory deficits noted Sensorium / Orientation: alert Motor Exam: strength 5/5 throughout Psych mental status grossly normal MDM MDM MDM Narrative Medical decision making narrative: Debrox otic solution was applied to the right ear. The right ear will be irrigated after this. Patient was instructed to avoid putting Q-tips in his ear. Patient was instructed use [id number]-[id number] ear removal kits as needed. Patient was instructed to follow-up with his primary care physician in 5 to 7 days. Patient understood and was agreeable with the plan. All questions were answered. Discharge Plan Triage Chief Complaint: Ear Problem ED Provider: Tho Romero Dx/Rx/DC Orders Clinical Impression: Impacted cerumen of right ear, Hearing loss of right ear due to cerumen impaction Instructions: ED Cerumen Impaction Treated Prescriptions: No Action lisinopril 5 mg tablet PO cholecalciferol (vitamin D3) 1,250 mcg (50,000 unit) capsule PO [id number] 200-175-250 mcg tablet PO guanfacine 4 mg tablet extended release 24 hr 4 mg PO cariprazine 6 mg capsule 6 mg PO lurasidone 120 mg tablet 120 mg PO Equetro 300 mg capsule, ER multiphase 12 hr 300 mg PO propranolol 10 mg tablet PO lamotrigine 100 mg tablet 100 mg PO cetirizine 10 MG tablet 10 mg PO DAILY melatonin 3 MG tablet 3 mg PO QHS sertraline 50 MG tablet 75 mg PO DAILY Primary Care Provider: Joelle Kelly NP Referrals: Joelle Kelly NP, [facility] [Primary Care Provider] - 5-7 Days Print Language: [place] Disposition Disposition: Home, Self Care
[2023-10-04] MEDS: Carbamide Peroxide 15 ML Bottle 5 DRP OTIC (00:45)
[2023-10-04 01:22] VITALS: BP 120/84; PULSE 58; RESP 16; TEMP 35.8; O2SAT 95
== END 2023-10-04 01:23 | disposition home or self-care (01) ==
LOC: ED 10-04 00:53
PROVIDERS: Emergency Provider Emergency Medicine; PCP Nurse Practitioner Primary Care; Visit Provider Emergency Medicine
DX: H61.21 Impacted cerumen, right ear (principal); F17.200 Nicotine dependence, unspecified, uncomplicated; X58.XXXA Exposure to other specified factors, initial encounter; I10 Essential (primary) hypertension; Z79.899 Other long term (current) drug therapy
CPT/HCPCS: 69209; 99283; A4216

== ENCOUNTER 2024-08-30 15:43 | Emergency (ER) | payer MEDICAID, SELFPAY ==
[2024-08-30 15:44] VITALS: BP 146/76; PULSE 73; RESP 18; TEMP 36.4; O2SAT 94; BMI 31.2
--- NOTE | 2024-08-30 16:00 | RAD_ITS ---
EXAM: XR Right Elbow Complete, 3 or More Views CLINICAL INDICATION: INJURY TECHNIQUE: Frontal, lateral and oblique views of the right elbow. COMPARISON: No relevant prior studies available. FINDINGS: BONES/JOINTS: Unremarkable. No acute fracture. No dislocation. SOFT TISSUES: Unremarkable. RAD/Elbow min 3 Views IMPRESSION: No acute fracture. Reading Location: [id number]
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
[2024-08-30 16:37] VITALS: BP 146/76; PULSE 73; RESP 16; TEMP 36.4; O2SAT 94
== END 2024-08-30 16:39 | disposition home or self-care (01) ==
PROVIDERS: Emergency Provider Emergency Medicine; PCP Nurse Practitioner Primary Care; Visit Provider Emergency Medicine
DX: S09.90XA Unspecified injury of head, initial encounter (principal); S80.811A Abrasion, right lower leg, initial encounter; S50.311A Abrasion of right elbow, initial encounter; I10 Essential (primary) hypertension; V18.4XXA Pedal cycle driver injured in noncollision transport accident in traffic accident, initial encounter; Z79.899 Other long term (current) drug therapy; F17.210 Nicotine dependence, cigarettes, uncomplicated
CPT/HCPCS: 73080; 99282; A4216